=== PATIENT | female | born 1950 | race Caucasian/White ===

== ENCOUNTER → 2021-03-02 11:44 | Outpatient (BNVA) | payer SELFPAY | PROVIDERS: Visit Provider Nurse Practitioner Family | DX: Z20.822 Contact with and (suspected) exposure to COVID-19 (principal); R68.89 Other general symptoms and signs | CPT/HCPCS: 87400; 87635 ==

== ENCOUNTER 2023-08-25 12:00 | Outpatient (CLI) | payer MEDICARE, SELFPAY ==
--- NOTE | 2023-08-25 12:11 | XR_ITS ---
WS: [id number] XR chest 2V* [id number] REASON FOR EXAM: Dyspnea on effort FINDINGS: The heart and the mediastinum are within normal limits. Calcified granulomas disease in both hemithoraces. No acute pulmonary parenchymal or pleural abnormality. Mild dextroscoliosis of the thoracic spine. XR/XR chest 2V* [id number] IMPRESSION: No acute chest abnormality.
== END 2023-08-25 12:01 | disposition home or self-care (01) ==
LOC: LAB 12:04
PROVIDERS: PCP Emergency Medicine; Visit Provider Nurse Practitioner Family
DX: R06.09 Other forms of dyspnea (principal); J84.10 Pulmonary fibrosis, unspecified; M41.84 Other forms of scoliosis, thoracic region
CPT/HCPCS: 71046

== ENCOUNTER → 2024-10-18 14:50 | Outpatient (BNVA) | payer MEDICARE, SELFPAY | PROVIDERS: PCP Emergency Medicine; Visit Provider Podiatrist Foot & Ankle Surgery | DX: M79.671 Pain in right foot (principal); M79.672 Pain in left foot; M76.821 Posterior tibial tendinitis, right leg; M76.822 Posterior tibial tendinitis, left leg; M19.071 Primary osteoarthritis, right ankle and foot; M19.072 Primary osteoarthritis, left ankle and foot; Q66.6 Other congenital valgus deformities of feet | CPT/HCPCS: 73630; 99203 ==

== ENCOUNTER 2024-11-27 11:16 | Outpatient (CLI) | payer MEDICARE, SELFPAY | END 2024-11-27 11:17 | disposition home or self-care (01) | LOC: SPT 11:17 | PROVIDERS: PCP Emergency Medicine; Visit Provider Podiatrist Foot & Ankle Surgery | DX: Z46.89 Encounter for fitting and adjustment of other specified devices (principal); M21.41 Flat foot [pes planus] (acquired), right foot; M21.42 Flat foot [pes planus] (acquired), left foot | CPT/HCPCS: L3030 ==

== ENCOUNTER → 2024-12-25 13:19 | Outpatient (BNVA) | payer MEDICARE, SELFPAY | PROVIDERS: PCP Emergency Medicine; Visit Provider Podiatrist Foot & Ankle Surgery | DX: Q66.6 Other congenital valgus deformities of feet (principal); M76.821 Posterior tibial tendinitis, right leg; M76.822 Posterior tibial tendinitis, left leg; M19.071 Primary osteoarthritis, right ankle and foot; M19.072 Primary osteoarthritis, left ankle and foot | CPT/HCPCS: 99213 ==

== ENCOUNTER → 2025-03-07 14:24 | Outpatient (BNVA) | payer MEDICARE, SELFPAY | PROVIDERS: PCP Emergency Medicine; Visit Provider Orthopaedic Surgery | DX: M48.062 Spinal stenosis, lumbar region with neurogenic claudication (principal) | CPT/HCPCS: 72110 ==

== ENCOUNTER 2025-03-07 16:16 | Outpatient (CLI) | payer MEDICARE, SELFPAY ==
--- NOTE | 2025-03-07 16:20 | USCV_ITS ---
Paulette Haro Age: 74 Gender: F : 1950 Exam Date: 03/07/2025 16:29 Ordering Phys: William Boyd DO Technologist: [place] [facility] [place] dvt HISTORY: DVT. PROCEDURES: The venous duplex Doppler examination of both lower extremities was performed in the standard fashion. FINDINGS: No evidence of DVT seen in any vessel visualized at this time. CONCLUSIONS No evidence of right lower extremity DVT. No evidence of left lower extremity DVT. Sulaiman Torres MD (Electronically Signed) Final Date: 07 March 2025 17:11 S
== END 2025-03-07 16:17 | disposition home or self-care (01) ==
LOC: RAD 16:20
PROVIDERS: PCP Emergency Medicine; Visit Provider Orthopaedic Surgery
DX: I82.403 Acute embolism and thrombosis of unspecified deep veins of lower extremity, bilateral (principal); M48.062 Spinal stenosis, lumbar region with neurogenic claudication; G89.29 Other chronic pain
CPT/HCPCS: 93970; 99203

== ENCOUNTER 2025-03-13 11:52 | Outpatient (CLI) | payer MEDICARE, SELFPAY ==
--- NOTE | 2025-03-13 12:15 | MR_ITS ---
WS: [id number] MRI LUMBAR SPINE NONCONTRAST TECHNIQUE: Sagittal T1, T2 and STIR imaging. Axial T1 and T2 imaging. CLINICAL INFORMATION: back pain COMPARISON: None. FINDINGS: Mild lumbar curve. No acute compression. Grade 1 anterolisthesis L4 on L5. Edema within the interspinous and paraspinous dorsal musculature at L4-5 compatible with ligamentous injury. L1-L2: Normal. L2-L3: Slight retrolisthesis. Narrowing of the RIGHT subarticular recess. Mild facet arthropathy. Spinal canal and foramen are patent. L3-L4: Mild annular bulging. Slight narrowing LEFT subarticular recess. Mild facet arthropathy. Mild LEFT foraminal narrowing. L4-L5: LEFT subarticular disc extrusion with slight cranial migration posterior to L4. Impingement LEFT subarticular recess. Mild LEFT foraminal narrowing. RIGHT foramen is patent. Mild central canal stenosis. Moderate facet arthropathy. L5-S1: Mild diffuse disc bulging with impingement on traversing LEFT greater than RIGHT S1 nerve roots. Mild LEFT foraminal narrowing. Moderate facet arthropathy. Visualized pelvic bony structures: Normal. Paravertebral soft tissues: Normal. Partially visualized LEFT renal cyst measuring 5.3 x 3.1 cm MR/MR lumbar spine wo con* [id number] IMPRESSION: 1. Edema within the dorsal intraspinous musculature at L4-5 compatible with li gamentous injury. 2. Subligamentous disc extrusion posterior to the L4 vertebral body in the sub articular recess. This impinges the LEFT subarticular recess and traversing and proximal exiting LEFT L4 nerve root. Disc material measures 6 x 9 mm AP by tra nsverse. 3. Mild central canal stenosis at the L4-5 level due to disc bulging with impi ngement of the LEFT subarticular recess and traversing LEFT L5 nerve root. Mild LEFT foraminal narrowing. 4. Mild central canal stenosis L5-S1 with impingement upon the LEFT greater th an RIGHT S1 nerve roots. 5. Mild LEFT L5-S1 foraminal narrowing. 6. Moderate facet arthropathy L4-L5 and L5-S1.
== END 2025-03-13 11:53 | disposition home or self-care (01) ==
LOC: RAD 11:53
PROVIDERS: PCP Emergency Medicine; Visit Provider Orthopaedic Surgery
DX: M48.062 Spinal stenosis, lumbar region with neurogenic claudication (principal); M43.16 Spondylolisthesis, lumbar region; M47.816 Spondylosis without myelopathy or radiculopathy, lumbar region; M47.817 Spondylosis without myelopathy or radiculopathy, lumbosacral region; M48.061 Spinal stenosis, lumbar region without neurogenic claudication; M51.360 Other intervertebral disc degeneration, lumbar region with discogenic back pain only; M51.370 Other intervertebral disc degeneration, lumbosacral region with discogenic back pain only
CPT/HCPCS: 72148

== ENCOUNTER 2025-03-19 22:56 | Emergency (ER) | payer MEDICARE, SELFPAY ==
--- OUTSIDE RECORDS SUMMARY | 2024-01-24 04:10 | XMS_ITS ---
Author Organization [facility] Main Address [address] [facility] [place] [address] Care Team Providers Care Elementary Spanish Teacher Name Role Phone JEFF HUGHES Primary Care Provider REASON FOR VISIT LAST AWV 09/24/22 Encounters Encounter Location Date Provider Diagnosis [address], [place] [phone] 01/24/2024 JEFF HUGHES Plan Of Treatment No Information Progress Notes * Annie HAROOB:1950 (74 yo F)Acc No.[id number]:01/24/2024 Progress Note Patient: Paulette GRIMES Provider: Nancie HUGHES MD :1950 A ge:73 Y S ex:Female Date:01/24/2024 Address:[address] [id number] Subjective: * Chief Complaints: * 1 . LAST AWV 09/24/22. * Medical History: Objective: * Vitals: Assessment: Plan: * Treatment: * Billing Information: * Visit Code: * Procedure Codes: * Electronic signature of ASHIA HUGHES MD on 03/19/2025 at 11:10 PM CLIENT SERVER PROGRAMMER Sign off status: Pending * Provider: Nancie HUGHES MD Date: 03/25/2023 Generated for Printi ng/Faxing/eTransmitting on: 11:10 PM CLIENT SERVER PROGRAMMER
[2025-03-19 23:09] VITALS: BP 181/107; PULSE 86; RESP 26; TEMP 36.9; O2SAT 98; BMI 25.5
--- OUTSIDE RECORDS SUMMARY | 2025-03-19 23:10 | XMS_ITS | Patient Health Record ---
Author Organization [facility] Main Address [address] [place] [address] [place] [address] Care Team Providers Care Barrel Inspector Tight Name Role Phone JEFF HUGHES Primary Care Provider Allergies No Known Allergies Results Component Value Reference Range Notes US Breast Left Limited--7664 2 Reviewed date:04/25/2024 04:28:45 PM Interpretation: Performing Lab: Notes/Report: See Below For Report Mammogram Diag Brayden Unilat LT, US Breast Left Limited Read See Below For Report Mammogram Diag Brayden Unilat L T--11845 Reviewed date:04/25/2024 04:28:45 PM Interpretation: Performing Lab: Notes/Report: See Below For Report Mammogram Diag Brayden Unilat LT, US Breast Left Limited Read See Below For Report Mammogram Screen Brayden Joseph w/ CAD--[id number] Reviewed date:04/05/2024 02:12:43 PM Interpretation: Performing Lab: Notes/Report: See Below For Report Mammogram Screen Brayden Joseph w/CAD Read See Below For Report Reason For Referral No Information Immunizations Vaccine Route Administration Date Status Comme nts COVID-19 Vaccine, Moderna Unknown 05/26/2020 Administered COVID-19 Vaccine, Moderna Unknown 06/23/2020 Administered COVID-19 Vaccine, Moderna Unknown 01/14/2021 Administered COVID-19, Moderna Bivalant booster, 18+ Unknown 01/04/2022 Administered Flulaval Trivalant 24-25 IM Intramuscular 02/24/2024 Administered Prevnar 20 - MEDICARE IM Intramuscular 09/24/2022 Administered NDC 3462-8315-0 1 Social History Tobacco Use: Social History Observation Description Date Details (start date - stop date) Never Smoker NA - NA Tobacco Use/Smoking Question Answer Notes Tobacco use: nonsmoker PHQ-2 Question Answer Notes Little interest or pleasure in doing things? Not at all Feeling down, depressed, or hopeless? Not at all Total Score 0 Problems Problem Type SNOMED Code ICD Code Onset Dates Problem Status W/U Status Risk Notes Problem Mixed hyperlipidemia (559752442) Mixed hyperlipidemia (E78.2) Active confirmed Problem Unspecified menopausal and perimenopausal disorder (N95.9) Active confirmed Encounters Encounter Location Date Provider Diagnosis [facility] [address] [phone] 05/31/2024 JEFF HUGHES Plan Of Treatment Pending Test Test Name Order Date Bone Density 09/08/2022 Insurance Providers Payer Name Payer Address Payer Phone Subscriber Number Group Number Insured Name Patient Relationship to Insured Coverage Start Date Coverage End Date [employer] ADV [address] [address] [place] [address] [id number] Paulette Haro Self - patient is the insured 3 Medical (General) History Medical History History ICD Code MAMMOGRAM: 03/26/2024 elliot glover additional imaging left side. 04/16/24 normal. go back to annual screening COLOGUARD 09/13/2022 negative results bk BONE DENSITY 09/08/2022 - OSTEOPENIA Surgical History Surgery Date(Month/Year) TUBAL 12/17/1981
--- OUTSIDE RECORDS SUMMARY | 2025-03-19 23:10 | XMS_ITS | Patient Health Record ---
Author Organization [facility] Address [address] [place] [address] Care Team Providers Care Central Station Operator Name Role Phone Tameka Whittington Primary Care Provider [phone] Allergies No Known Allergies Results Component Value Reference Range Notes UA Without Micro-[place], [place] - [address] Reviewed date:09/20/2024 11:39:08 AM Interpretation: Performing Lab: Notes/Report: Color yellow Clarity clear Glucose negative Bili negative Ketones negative Sp [place] 1.020 Blood trace pH 6.0 Protein negative Urobili negative Nitrites negative Leukocytes 3+ Urinalysis--63729 Reviewed date:06/12/2024 02:55:10 PM Interpretation: Performing Lab: Notes/Report: Specific gravity UA 1.015 Urine Nitrite negative Color UA yellow Urine Blood 2+ Clarity UA clear Urine pH 7.5 Urine Glucose negative Urine Leukocyte 3+ Urine Protein negative Urine Bilirubin negative Urine Ketone negative Urobilinogen negative Uric Acid (B) 49267 Reviewed date:02/25/2025 12:55:28 PM Interpretation: Performing Lab: Notes/Report: Diagnosis Description: Localized swelling, mass and lump, left lower limb Uric Acid 5.1 2.6-6.0 MG/DL UA Without Micro-Auto, [place] - [address] Reviewed date:02/04/2025 03:26:24 PM Interpretation: Performing Lab: Notes/Report: Color yellow Clarity clear Glucose negative Bili negative Ketones negative Sp [place] 1.010 Blood negative pH .5 Protein negative Urobili negative Nitrites negative Leukocytes 3+ Reason For Referral Reason Bilt LE varicose vei ns Diagnosis 1 Symptomatic varicose veins of both lower extremities (I83.893) Referral Organization [facility] Referring Provider First Name Tameka Referring Provider Last Name Pk Referring Provider Speciality Nurse Adebayo vasquez Referred Provider Specialty Vascular Lakisha jose alejandro General Notes Heidy Altamirano 02/20 03:48:23 PM BLACK BELT > faxed to [phone] Referral Priority Routine Medications Medication SIG (Take, Route, Frequency, Duration) Notes Start Date End Date Status Cyclobenzaprine HCl 10 MG Tablet 1 tablet at bedtime as needed Orally Once a day; Duration: 7 days 02/04/2025 Active Immunizations Vaccine Route Administration Date Status Comme nts Flucelvax Trivalent, Syringe 0.5 mL, PF Unknown 024 Refused Flucelvax Trivalent, Syringe 0.5 mL, PF Unknown 025 Refused Social History Tobacco Use: Social History Observation Description Date Details (start date - stop date) Never Smoker NA - NA Social History Depression Screening Social Info Question Answer Notes PHQ-9 Little interest or pleasure in doing thin gs Not at all Feeling down, depressed, or hopeless Not at all Trouble falling or staying asleep, or sleeping t oo much Not at all Feeling tired or having little energy Not at all Poor appetite or overeating Not at all Feeling bad about yourself, or that you are a failure, or have let yourself or your family down Not at all Trouble concentrating on thi ngs, such as reading the newspaper or watching television Not at all Moving or speaking so slowly that other people could have noticed. Or the opposite ? being so fidgety or restless that you have been moving around a lot more than usual Not at all Thoughts that you would be b ashly off , or of hurting yourself in some way Not at all Total Score 0 Drug/Alcohol: Social Info Question Answer Notes AUDIT-C (Standard) Did you have a drink containing alcohol in the past year? No Points 0 Interpretation Negative Tobacco Use: Social Info Question Answer Notes Tobacco Control (Standard) Tobacco use: Nonsmoker Section Notes: 08/24/23 PHQ9 08/24/23 PHQ9 08/24/23 PHQ9 08/24/23 PHQ9 09/19/24 PHQ9 08/24/23 PHQ9 09/19/24 PHQ9 08/24/23 PHQ9 09/19/24 PHQ9 08/24/23 PHQ9 09/19/24 PHQ9 08/24/23 PHQ9 08/24/23 PHQ9 08/24/23 PHQ9 Problems Problem Type SNOMED Code ICD Code Onset Dates Problem Status W/U Status Risk Notes Problem Right side sciatica (905131084918295) Sciatica, right side (M54.31) Active confirmed Problem Anxiety (42075061) Anxiety (F41.9) Active confirmed Problem Sciatica (64285424) Sciatica of left side (M54.32) Active confirmed Problem Sciatica (90263635) Back pain of lumbosacral region with sciatica (M54.40) Active confirmed Problem Environmental allergy (950337076) Environmental allergies (Z91.09) Active confirmed Problem Varicose veins of bilateral lower limbs (5241880782172194 6) Symptomatic varicose veins of both lower extremities (I83.893) Active confirmed Vital Signs Heart Rate 76 /min 02/28/2025 Temperature 98.2 degrees Fahrenheit 02/28/2025 Respiratory Rate 20 /min 02/28/2025 Blood pressure diastolic 82 mm Hg 02/28/2025 Oximetry 99 % 02/28/2025 Height-cm 170.18 cm 02/28/2025 Weight-kg 76.2 kg 02/28/2025 Height 67 in 02/28/2025 Blood pressure systolic 122 mm Hg 02/28/2025 Weight 168 lbs 02/28/2025 BMI 26.31 kg/m2 02/28/2025 Encounters Encounter Location Date Provider Diagnosis [facility] Office [address] [address] 02/28/2025 Tameka Whittington Back pain of lumbosacral region with sciatica M54.40 [facility] [address] [address] 02/19/2025 Tameka Whittington Cellulitis of foot, left L03.116 ; Localized swelling of left foot R22.42 and Symptomatic varicose veins of both lower extremities I83.893 [facility] [address] [address] 02/04/2025 Tameka Whittington Acute UTI (urinary tract infection) N39.0 ; Sciatica of left side M54.32 ; Sciatica, right side M54.31 ; Encounter for immunization Z23 and Vaccination not carried out because of parent refusal Z28.82 [facility] [address] [facility] [address] [place] [address] 09/19/2024 Tameka Whittington Depression screen Z13.31 and Acute UTI (urinary tract infection) N39.0 [facility] [address] [facility] [address] [place] [address] 06/12/2024 Tameka Whittington Acute UTI (urinary tract infection) N39.0 [facility] [address] [facility] [address] [place] [address] 02/13/2025 Tameka Whittington Sciatica of left sweta e M54.32 [facility] [address] [facility] [address] [place] [address] 07/19/2024 Tameka Whittington Acute UTI (urinary tract infection) N39.0 [facility] [address] [facility] [address] [place] [address] 06/13/2024 Tameka Whittington Assessments Encounter Date Diagnosis (ICD Code) Assessment Notes Treatment Notes Treatment Clinical Notes Section Notes 06/12/2024 Acute UTI (urinary tract infection) (ICD-10 - N39.0) Increase fluids, take medication as directed. RTC if no improvement with treatment. 07/19/2024 Acute UTI (urinary tract infection) (ICD-10 - N39.0) 09/19/2024 Depression screen (ICD-10 - Z13.31) 09/19/2024 Acute UTI (urinary tract infection) (ICD-10 - N39.0) Increase water intake, take medication as directed. RTC if no improvement with treatment. 02/04/2025 Sciatica of left side (ICD-10 - M54.32) Sciatica: Exercises material was printed 02/04/2025 Acute UTI (urinary tract infection) (ICD-10 - N39.0) Increase water intake, take medication as directed. RTC if no improvement with treatment. 02/13/2025 Sciatica of left side (ICD-10 - M54.32) 02/19/2025 Cellulitis of foot, left (ICD-10 - L03.116) 02/19/2025 Localized swelling of left foot (ICD-10 - R22.42) 02/28/2025 Back pain of lumbosacral region with sciatica (ICD-10 - M54.40) Will have MRI at [facility]. Questions asked and answered; discharged to home. 02/19/2025 Symptomatic varicose veins of both lower extremities (ICD-10 - I83.893) 02/04/2025 Sciatica, right side (ICD-10 - M54.31) 02/04/2025 Encounter for immunization (ICD-10 - Z23) 02/04/2025 Vaccination not carried out because of parent refusal (ICD-10 - Z28.82) 02/19/2025 Other Venipuncture performed. Right arm. One attempt. Pt tolerated well, bleeding controlled with light dressing.formerly [facility] Plan Of Treatment No Information Insurance Providers Payer Name Payer Address Payer Phone Subscriber Number Group Number Insured Name Patient Relationship to Insured Coverage Start Date Coverage End Date [facility] Medicare Advantage PPO [address] [address] [place] [address] [phone] [id number] Paulette Haro Self - patient is the insured Medical (General) History Medical History History ICD Code Problem:Atrophic vaginitis (disorder) , Status :: Active Problem:Menopausal symptom (finding) , S tatus :: Active Surgical History Surgery Date(Month/Year) tubal ligation
--- NOTE | 2025-03-19 23:13 | ECG_ITS ---
[facility] Test Date: 2025-03-19 Pat Name: Paulette Haro Department: Room: Gender: Female Cardiac Nurse: : 1950 Requested By: Daisy Mae Order Number: [id number] Brice MD: Kumar Baltazar M.D. Measurements Intervals [place] Rate: 90 P: 47 ME: 153 QRS: 3 QRSD: 77 T: 38 QT: 367 QTc: 450 Interpretive Statements SINUS RHYTHM No previous ECG available for comparison Electronically Signed On 03-21-2025 15:58:09 STAFFING CONSULTANT by Kumar Baltazar M.D. [email or web address]
--- NOTE | 2025-03-19 23:15 | ED_ITS ---
HPI - General Adult 2 General: Chief complaint: Abdominal Pain Stated complaint: Abd pain, groin, back and leg pain Time Seen by Provider: 03/19/25 23:12 History of Present Illness: 74yo F w/pmhx of chronic low back pain a nd sciatica w/cc of left lower quadrant and suprapubic pain, right groin pain and bilateral leg pain. Patient states that the back pain started in January after picking up a heavy pot, has been unchanged. Patient denies fever, new trauma, focal weakness, sensory deficits, paresthesias, loss of bowel or bladder control, saddle anesthesia. She had a recent lumbar MRI which shows: IMPRESSION: 1. Edema within the dorsal intraspinous musculature at L4-5 compatible with ligamentous injury. 2. 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 This impinges the LEFT subarticular recess and traversing and proximal exiting LEFT L4 nerve root. Disc material measures 6 x 9 mm AP by transverse. 3. Mild central canal stenosis at the L 4-5 level due to disc bulging with impingement of the LEFT subarticular recess and traversing LEFT L5 nerve root. Mild LEFT foraminal narrowing. 4. Mild central canal stenosis L5-S1 wi th impingement upon the LEFT greater than RIGHT S1 nerve roots. 5. Mild LEFT L5-S1 foraminal narrowing. 6. Moderate facet arthropathy L4-L5 and L5-S1. Today, she presents because of low abd pain/LLQ pain. No fever, chest pain, shortness of breath, n/v, dysuria or hematuria. She's been constipated which is chronic for her. Small BM yesterday morning w/o blood. Continues to pass flatus. Has h/o tubal ligation, denies additional surgeries. She also complains of LLE pain, starting at the groin, burning, radiating behind the knee and anterior L soni. No skin changes. Related Data Home Medications ?Medication ?Instructions ?Recorded ?Confirmed cyclobenzaprine 10 mg tablet 10 mg PO TID 03/07/25 Previous Rx's ?Medication ?Instructions ?Recorded Sole Supports #1 ea 10/18/24 prednisone 20 mg tablet 20 mg PO DAILY #15 tabs 02/18 11/12 apixaban 5 mg (74 tabs) tablets in See Rx Instructions PO .COMPLEX 03/20/25 a dose pack (Eliquis DVT-PE Treat #74 ea 30D Start) Allergies Allergy/AdvReac Type Severity Reaction Status Date / Time No Known Allergies Allergy Verified 03/07/25 15:10 PFSH ED 2 PFSH: Social History Smoking and tobacco/nicotine status: never used tobacco/nicotine Physical Exam 2 Narrative: EXAM NARRATIVE: Vital signs were reviewed. Patient is alert and oriented. Patient is breathing comfortably, no increased WOB or accessory muscle use. SpO2 is above 95% on RA. Patient has clear lungs b/l, no rhonchi, wheezing or crackles. No hypotension or tachycardia. Abdomen is soft, nondistended. +Tenderness w/palpation of LLQ and suprapubic region. No CVA tenderness w/percussion of the flanks. No pain w/palpation of midline C, T or L spine. Patient is moving all extremities, no deformity or gross injury. No lower extremity edema or asymmetry. +2 DP and PT pulses b/l, no evidence of extremity ischemia. Patient has no skin findings but has some tenderness w/palpation of the thigh and calf. Negative straight leg raise test b/l. Course 2 Vital Signs: Vital signs: Vital Signs Temperature 98.5 F 03/19/25 23:09 Pulse Rate 85 03/20/25 00:30 Respiratory Rate 20 H 03/19/25 23:37 Blood Pressure 172/96 03/20/25 00:30 Pulse Oximetry 95 03/20/25 00:30 Oxygen Delivery Me thod Room Air 03/20/25 00:30 MDM - General Adult Medical Decision Making 74yo F w/cc of chronic, unchanged back pain a/w sciatica w/o new neuro sx w/cc of abd pain, specifically LLQ and suprapubic pain, and LLE pain. On exam, she's stable. She has tenderness w/palpation of the suprapubic and LLQ region. Differential diagnosis includes, but is not limited to, urinary tract infection, pyelonephritis, kidney stone, hernia, diverticulitis, ovarian pathology, DVT, sciatica, muscle sprain/strain, intra abdominal malignancy, other. Patient was evaluated w/CBC, CMP, lipase, D-dimer, UA, CT abd/pelvis. Treated w/morphine and zofran IV. Patient has an elevated white blood cell count. She does not have any actionable electrolyte abnormalities, has normal kidney function, liver function and lipase. UA does not show infection or hematuria. D-dimer is significantly elevated, added ultrasound of the left lower extremity to rule out a DVT: IMPRESSION: Positive for DVT within the left peroneal vein. CT abd/pelvis: IMPRESSION: Multiple loops of lower abdominal small bowel with internal fluid and scattered air-fluid levels. No significant wall thickening or adjacent inflammation. Question mild infectious/inflammatory enteritis. Nonobstructive bowel gas pattern. Patient shares that she has had DVT in the past. She was started on anticoagulation; she denies history of ICH, CVA, neurosurgery, spine surgery, recent trauma, GI bleeding. She is appropriate for outpatient follow-up with her doctor. Return precaution Lab Data 03/19/25 23:23 03/19/25 23:23 Radiology Impressions Abdomen/Pelvis CT 03/19/25 23:32 IMPRESSION: Multiple loops of lower abdominal small bowel with internal fluid and scattered air-fluid levels. No significant wall thickening or adjacent inflammation. Question mild infectious/inflammatory enteritis. Nonobstructive bowel gas pattern. COMMENTS: Consistent with the [employer]'s Incidental Findings Committee white paper (J Am Nichol Radiol 2018): Any incidental renal lesion less than 1 cm or classified as too small to characterize, or any incidental cystic renal lesion characterized as simple-appearing, is likely benign. No follow-up imaging is recommended for these lesions per consensus recommendations based on imaging criteria. Venous Duplex 03/20/25 00:05 IMPRESSION: Positive for DVT within the left peroneal vein. Laboratory Results WBC 14.03 10^3/uL (3.29-11.43) H 03/19/25 23:23 RBC 3.81 10^6/uL (3.85-5.65) L 03/19/25 23:23 Hgb 10.80 g/dL (11.27-16.99) L 03/19/25 23:23 Hct 33.8 % (36-47) L 03/19/25 23:23 MCV 88.7 fl (85-98) 03/19/25 23:23 MCH 28.3 pg (27-33) 03/19/25 23:23 MCHC 32.0 g/dL (30-55) 03/19/25 23:23 RDW 14.3 % (12.1-15.1) 03/19/25 23:23 Plt Count 501 10^3/cmm (157-399) H 03/19/25 23:23 MPV 10.8 fL (7.4-10.4) H 03/19/25 23:23 Neut % (Auto) 58.7 % 03/19/25 23:23 Lymph % (Auto) 24.9 % 03/19/25 23:23 [place] % (Auto) 12.0 % 03/19/25 23:23 Eos % (Auto) 3.4 % 03/19/25 23:23 Baso % (Auto) 0.4 % 03/19/25 23:23 Neut # (Auto) 8.22 10^3/uL (1.8-7.7) H 03/19/25 23:23 Lymph # (Auto) 3.5 10^3/uL (0.8-4.8) 03/19/25 23:23 [place] # (Auto) 1.7 10^3/uL (0.2-0.9) H 03/19/25 23:23 Eos # (Auto) 0.5 10^3/uL (0.0-0.8) 03/19/25 23:23 Baso # (Auto) 0.1 10^3/uL (0.0-0.1) 03/19/25 23:23 Nucleated RBC % (auto) 0 % 03/19/25 23:23 Nucleated RBCs # 0.0 /100WBC 03/19/25 23:23 D-Dimer 3.34 ug/mLFEU (0-0.59) H 03/19/25 23:23 Sodium 137 mmol/L (136-145) 03/19/25 23:23 Potassium 3.7 mmol/L (3.5-5.1) 03/19/25 23:23 Chloride 99 mmol/L (98-107) 03/19/25 23:23 Carbon Dioxide 23 mmol/L (22-29) 03/19/25 23:23 Anion Gap 18.7 (5-19) 03/19/25 23:23 BUN 14 mg/dL (8-23) 03/19/25 23:23 Creatinine 0.7 mg/dL (0.5-0.9) 03/19/25 23:23 GFR Calculation Not Reportable 03/19/25 23:23 Glucose 118 mg/dL (65-115) H 03/19/25 23:23 Calculated Osmolality 286 mOsm/kg (285-295) 03/19/25 23:23 Calcium 8.7 mg/dL (8.5-10.5) 03/19/25 23:23 Total Bilirubin 0.4 mg/dL (0.15-1.2) 03/19/25 23:23 AST 14 U/L (0-32) 03/19/25 23:23 ALT 12 U/L (0-33) 03/19/25 23:23 Alkaline Phosphatase 72 U/L (35-105) 03/19/25 23:23 Total Protein 6.7 g/dL (6.6-8.7) 03/19/25 23:23 Albumin 3.2 g/dL (3.5-5.2) L 03/19/25 23:23 Globulin 3.5 g/dL (1.3-4.6) 03/19/25 23:23 Lipase 37 U/L (13-60) 03/19/25 23:23 Urine Color Yellow (Yellow) 03/19/25 23:57 Urine Appearance Clear (CLEAR) 03/19/25 23:57 Urine pH 7.0 (5-7) 03/19/25 23:57 Ur Specific [place] 1.016 (1.005-1.030) 03/19/25 23:57 Urine Protein Trace (Negative) A 03/19/25 23:57 Urine Glucose (UA) Negative (Normal) 03/19/25 23:57 Urine Ketones Negative (Negative) 03/19/25 23:57 Urine Blood Negative (Negative) 03/19/25 23:57 Urine Nitrate Negative (Negative) 03/19/25 23:57 Urine Bilirubin Negative (Negative) 03/19/25 23:57 Urine Urobilinogen 0.2 mg/dL (Negative) 03/19/25 23:57 Ur Leukocyte Esterase Trace (Negative) A 03/19/25 23:57 Urine RBC 0-2 /hpf (0-2) 03/19/25 23:57 Urine WBC 0-5 /hpf (0-5) 03/19/25 23:57 Ur Squamous Epith Cells 0-5 /hpf (0-5) 03/19/25 23:57 Amorphous Sediment Not Reportable 03/19/25 23:57 Urine Bacteria None seen /hpf (NONE) 03/19/25 23:57 Hyaline Casts 0.81 /lpf 03/19/25 23:57 All radiology interpretation(s) finalized by discharge EKG Data EKG 1: Interpretation: Sinus rhythm with a heart rate of 90, normal axis, normal intervals, no STEMI, no ischemic change. Computer generated interpretation: Abdomen/Pelvis CT 03/19/25 23:32 IMPRESSION: Multiple loops of lower abdominal small bowel with internal fluid and scattered air-fluid levels. No significant wall thickening or adjacent inflammation. Question mild infectious/inflammatory enteritis. Nonobstructive bowel gas pattern. COMMENTS: Consistent with the [employer]'s Incidental Findings Committee white paper (J Am Nichol Radiol 2018): Any incidental renal lesion less than 1 cm or classified as too small to characterize, or any incidental cystic renal lesion characterized as simple-appearing, is likely benign. No follow-up imaging is recommended for these lesions per consensus recommendations based on imaging criteria. Venous Duplex 03/20/25 00:05 IMPRESSION: Positive for DVT within the left peroneal vein. Discharge Plan Discharge Patient Disposition: Home Clinical Impression: Acute deep vein thrombosis (DVT) of peroneal vein, Abdominal pain, Constipation, Renal cyst Condition: Stable Prescriptions: New Eliquis DVT-PE Treat 30D Start 5 mg (74 tabs) tablets,dose pack See Rx Instructions .ROUTE .COMPLEX Qty: 74 0RF Rx Instructions: orally per package directions No Action (DME) Sole Supports See Rx Instructions .Route .MEDSUPPLY Qty: 1 0RF Rx Instructions: As directed by [employer] cyclobenzaprine 10 mg tablet 10 mg PO TID prednisone 20 mg tablet 20 mg PO DAILY Qty: 15 0RF Rx Instructions: 60 mg for three days, 40mg for two days, 20mg for two days Discharge Orders: Discharge ED (Routine); Ordered 03/20/25 Ordered By: Daisy Mae Referrals: JEFF HUGHES MD [Primary Care Provider] Patient Instructions: Apixaban (By mouth), Deep Vein Thrombosis (ED), Abdominal Pain (ED), Opioid Safety, Pain Management, Patient Portal & [place] Instructions Activity Restrictions/Additional Instructions: Please switch to taking Tylenol for pain, you may take 500 mg to 1000 mg every 6-8 hours. Note that using a nonsteroidal inflammatory medication such as Motrin, ibuprofen, naproxen and Aleve can increase your risk of serious bleeding when you are taking a blood thinner. Ice, elevate your painful extremity. Compression bandage can also be helpful. Start taking your anticoagulant medication as prescribed. Given that this is your third DVT, talk to your primary care doctor about testing for blood clotting disorders. To help with constipation, drink at least 64 ounces of fluid per day. Increase your intake of fiber, fruits and vegetables. You may take a combination of docusate and senna 1-2 times per day to help soften and bulk up your stool to make it easier to pass. You may take a daily dose of MiraLAX. You may also use an [id number] enema. Please continue to monitor your condition closely at home. If your condition worsens or additional concerns arise, please return promptly to the emergency department for reassessment. Follow up with your primary care doctor in one week. Print Language: Kiswahili Coding Level of Care Code ED Bank Clerk for Zoë Jett
--- NOTE | 2025-03-19 23:32 | CTR_ITS ---
PROCEDURE INFORMATION: Exam: CT Abdomen And Pelvis With Contrast Exam date and time: 03/20/2025 12:15 AM Age: 74 years old Clinical indication: Abdominal pain; Additional info: Llq abd pain TECHNIQUE: Imaging protocol: Computed tomography of the abdomen and pelvis with contrast. Radiation optimization: All CT scans at this facility use at least one of these dose optimization techniques: automated exposure control; mA and/or kV adjustment per patient size (includes targeted exams where dose is matched to clinical indication); or iterative reconstruction. Contrast material: OMNI 350; Contrast volume: 100 ml; Contrast route: INTRAVENOUS (IV); COMPARISON: MR lumbar spine wo con* [id number] 03/13/2025 12:05 PM RADIATION DOSE METRICS: Total DLP (mGy-cm): 570.63 FINDINGS: Liver: Normal. No mass. Gallbladder and biliary ducts: Normal. No calcified stones. No ductal dilation. Pancreas: Normal. No ductal dilation. Spleen: Normal. No splenomegaly. Adrenal glands: Normal. No mass. Kidneys and ureters: Left renal exophytic cyst measuring 5.9 cm. Renal enhancement otherwise symmetrical. No hydronephrosis or urolithiasis. Stomach and bowel: Multiple loops of lower abdominal small bowel with internal fluid and air-fluid levels. No small bowel dilation or wall thickening. Large bowel unremarkable. Appendix: No evidence of appendicitis. Intraperitoneal space: Unremarkable. No free air. No significant fluid collection. Vasculature: Unremarkable. No abdominal aortic aneurysm. Lymph nodes: Unremarkable. No enlarged lymph nodes. Urinary bladder: Unremarkable as visualized. Reproductive: Densely calcified fibroid at the uterine fundus measuring 2 cm. Reproductive organs otherwise negative. Bones/joints: Mild thoracolumbar spondylosis. No acute osseous abnormality. Soft tissues: Unremarkable. CT/CT abdomen pelvis w con* [id number] IMPRESSION: Multiple loops of lower abdominal small bowel with internal fluid and scattered air-fluid levels. No significant wall thickening or adjacent inflammation. Question mild infectious/inflammatory enteritis. Nonobstructive bowel gas pattern. COMMENTS: Consistent with the [employer] [employer]'s Incidental Findings Committee white paper (J Am Nichol Radiol 2018): Any incidental renal lesion less than 1 cm or classified as too small to characterize, or any incidental cystic renal lesion characterized as simple-appearing, is likely benign. No follow-up imaging is recommended for these lesions per consensus recommendations based on imaging criteria.
[2025-03-19 23:37] VITALS: RESP 20; O2SAT 99
[2025-03-19] MEDS: ondansetron 2 mg/ML SDV 2 mL 4 MG IVP (23:37)
[2025-03-19] MEDS: morphine 4 mg/mL SDV 1 mL IVP (23:37)
[2025-03-19 23:40] VITALS: BP 167/77; PULSE 90; O2SAT 99
[2025-03-19 23:41] LABS: Hematocrit 33.8 % (36-47); Hemoglobin 10.80 g/dL (11.27-16.99); Mean Corpuscular HGB Conc 32.0 g/dL (30-55); Mean Corpuscular Hemoglobin 28.3 pg (27-33); Mean Corpuscular Volume 88.7 fl (85-98); Nucleated Red Blood Cells % 0 %; Platelet Count 501 10^3/cmm (157-399); Red Blood Count 3.81 10^6/uL (3.85-5.65); White Blood Count 14.03 10^3/uL (3.29-11.43)
[2025-03-20 00:01] LABS: Alanine Aminotransferase 12 U/L (0-33); Albumin Level 3.2 g/dL (3.5-5.2); Alkaline Phosphatase 72 U/L (35-105); Anion Gap 18.7 (5-19); Aspartate Amino Transferase 14 U/L (0-32); Blood Urea Nitrogen 14 mg/dL (8-23); Calcium 8.7 mg/dL (8.5-10.5); Carbon Dioxide 23 mmol/L (22-29); Chloride 99 mmol/L (98-107); Globulin 3.5 g/dL (1.3-4.6); Glucose 118 mg/dL (65-115); Lipase 37 U/L (13-60); Osmolality Calculated 286 mOsm/kg (285-295); Potassium 3.7 mmol/L (3.5-5.1); Sodium 137 mmol/L (136-145); Total Protein 6.7 g/dL (6.6-8.7)
--- NOTE | 2025-03-20 00:05 | USR_ITS ---
PROCEDURE INFORMATION: Exam: US Duplex Left Lower Extremity Veins, Limited Exam date and time: 03/20/2025 12:22 AM Age: 74 years old Clinical indication: Pain; Leg, lower; Left; Additional info: Lle pain TECHNIQUE: Imaging protocol: Real-time duplex ultrasound of the left extremity with 2-D black scale, color Doppler flow and spectral waveform analysis including responses to compression and other maneuvers (when performed) with image documentation. Limited exam focused on the left lower extremity veins. COMPARISON: CT abdomen pelvis w con* [id number] 03/20/2025 12:15 AM FINDINGS: Left deep veins: Acute, occlusive DVT of the left peroneal vein.. The common femoral, femoral, proximal profunda femoral and popliteal veins are patent without thrombus, demonstrating normal Doppler waveforms and normal compressibility and/or augmentation response. Superficial veins: Greater saphenous vein at the saphenofemoral junction is patent without thrombus. Soft tissues: Unremarkable. US/[place] [id number] IMPRESSION: Positive for DVT within the left peroneal vein.
[2025-03-20 00:14] LABS: Glucose Urine UA Negative (Normal); Nitrate Urine Negative (Negative); Specific Gravity, Urine 1.016 (1.005-1.030)
[2025-03-20 00:19] LABS: Add Urine Microscopic? YES
[2025-03-20] MEDS: iohexol 350 mg/mL 500 mL Btl (per mL) IV (00:21)
[2025-03-20 00:30] VITALS: BP 172/96; PULSE 85; O2SAT 95
[2025-03-20 01:42] VITALS: BP 153/99; PULSE 75; RESP 16; O2SAT 97
== END 2025-03-20 01:43 | disposition home or self-care (01) ==
PROVIDERS: Emergency Provider Emergency Medicine; PCP Emergency Medicine
DX: I82.452 Acute embolism and thrombosis of left peroneal vein (principal); K59.00 Constipation, unspecified; N28.1 Cyst of kidney, acquired
CPT/HCPCS: 74177; 80053; 81001; 83690; 85025; 85378; 93005; 93971; 96374; 96375; 99285; J2270; J2405; J9999